=== PATIENT | female | born 2000 ===

== ENCOUNTER 2020-11-09 14:32 | Outpatient (REF) | payer OTHER, SELFPAY ==
[2020-11-09 15:12] LABS: COVID-19 Test Negative (Negative)
== END 2020-11-09 14:33 | disposition home or self-care (01) ==
LOC: HO.LAB 14:32
PROVIDERS: Visit Provider Internal Medicine
DX: Z20.822 Contact with and (suspected) exposure to COVID-19 (principal)
CPT/HCPCS: 36415; 87635; C9803

== ENCOUNTER 2020-11-16 10:28 | Outpatient (REF) | payer OTHER, SELFPAY ==
[2020-11-16 11:00] LABS: COVID-19 Test Negative (Negative)
== END 2020-11-16 10:29 | disposition home or self-care (01) ==
LOC: HO.LAB 10:28
PROVIDERS: Visit Provider Internal Medicine
DX: Z20.822 Contact with and (suspected) exposure to COVID-19 (principal)
CPT/HCPCS: 36415; 87635; C9803

== ENCOUNTER 2020-11-22 21:56 | Emergency (ER) | payer OTHER, SELFPAY ==
[2020-11-22 21:57] VITALS: BP 150/103; PULSE 98; RESP 16; TEMP 36.6; O2SAT 98; BMI 37.1
[2020-11-22] MEDS: Acetaminophen 325 MG TABLET 650 MG PO (22:07)
--- NOTE | 2020-11-22 22:08 | PC.NURSE ---
Pt medicated per request with Tylenol due to a ZAVALA and back pain. Awaiting primary MD thapa.
[2020-11-22 22:44] VITALS: BP 133/85; PULSE 101; RESP 16; O2SAT 99
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
[2020-11-22] MEDS: Ibuprofen 600 MG TABLET PO (23:02)
[2020-11-22] MEDS: Cyclobenzaprine HCl 10 MG TABLET PO (23:02)
== END 2020-11-22 23:08 | disposition home or self-care (01) ==
PROVIDERS: Emergency Provider Emergency Medicine
DX: S16.1XXA Strain of muscle, fascia and tendon at neck level, initial encounter (principal); S39.012A Strain of muscle, fascia and tendon of lower back, initial encounter; M54.2 Cervicalgia; V43.52XA Car driver injured in collision with other type car in traffic accident, initial encounter; Y93.9 Activity, unspecified; Y92.410 Unspecified street and highway as the place of occurrence of the external cause; Y99.9 Unspecified external cause status; Z79.899 Other long term (current) drug therapy
CPT/HCPCS: 99284

== ENCOUNTER 2022-12-14 20:06 | Emergency (ER) | payer OTHER, SELFPAY ==
--- NOTE | ~2022-12-14 | XR_ITS ---
EXAMINATION: XR LUMBOSACRAL SPINE CLINICAL INFORMATION: Pain, injury. COMPARISON: None available. TECHNIQUE: Three views of the lumbosacral spine. FINDINGS: No evidence of acute compression deformity or malalignment. Intervertebral disc heights are maintained. Posterior elements are within normal limits. SI joints are symmetric. No significant paraspinal soft tissue abnormality. XR/XR lumbar spine 2-3V IMPRESSION: No acute fractures or malalignment. If pain persists, consider correlation with an MR of the lumbar spine.
[2022-12-14 20:21] VITALS: BP 119/79; PULSE 92; RESP 18; TEMP 36.8; O2SAT 96; BMI 46.8
--- NOTE | 2022-12-14 20:21 | ED_ITS ---
HPI - General Adult General Chief complaint: Back Pain/Injury Stated complaint: back pain Time Seen by Provider: 12/14/22 22:05 Source: patient, RN notes reviewed and old records reviewed Mode of arrival: ambulatory Limitations: no limitations History of Present Illness HPI narrative: 22-year-old female presents for evaluation of lower back pain. Patient reports that she was ?playing [place] [employer] when she jumped to a hit the [employer]. She states that she landed safely on both feet but ?immediately felt a pop in my lower back. ? Since then she has been having progressively worsening lower back pain that radiates into both legs. She reports some numbness and tingling down into both legs. Denies any bladder or bowel incontinence Her pain is 9/10 and stabbing in nature. Denies any history of back problems Related Data Previous Rx's Medication Instructions Recorded cyclobenzaprine 10 mg tablet 10 mg PO TID PRN muscle spasm #10 11/22/20 tabs ibuprofen 600 mg tablet 600 mg PO Q8H PRN pain #15 tabs 11/22/20 cyclobenzaprine 10 mg tablet 10 mg PO TID PRN muscle spasm #12 12/14/22 tabs dexamethasone 4 mg tablet 4 mg PO BID #4 tabs 12/14/22 tramadol 50 mg tablet 50 mg PO TID PRN severe pain 12/14/22 (scale score 7-10) #12 tabs Allergies Allergy/AdvReac Type Severity Reaction Status Date / Time No Known Allergies Allergy Verified 12/14/22 20:21 [No Known Allergies*] Review of Systems Constitutional: Constitutional: Reports as per HPI, Denies chills, Denies fatigue, Denies fever(s) and Denies headache(s) ENT: Denies headache(s) Cardiovascular: Cardiovascular: Denies chest pain and Denies dyspnea Respiratory: Respiratory: Denies cough and Denies dyspnea Gastrointestinal: Gastrointestinal: Denies abdominal pain, Denies constipation and Denies vomiting Genitourinary: Genitourinary: Denies dysuria Neurologic: Denies headache(s) and Denies focal weakness Endocrine: Endocrine: Denies fatigue [facility] Past Medical History Medical History (Updated 12/14/22 @ 22:54 by Arden Hyde) No known health problems Social History Social History Alcohol intake: never Smoked in Last 30 Days: No Use of substances other than those prescribed or required for medical reasons: No Any prior treatment program specific to substance use: No Advance Directives: No Advance Directives Information Provided: No Patient : No Physical Exam ED Vital Signs: Vital Signs - 24 hr 12/14/22 20:21 12/14/22 21:25 Temperature 98.3 F 98.6 F Pulse Rate 92 89 Respiratory Rate 18 20 Blood Pressure 119/79 140/78 H Pulse Oximetry 96 100 Oxygen Delivery Method Room Air Room Air BMI result Body Mass Index 46.8 Const General: healthy appearing, comfortable, no acute distress, alert and awake Nutritional Appearance: well nourished Orientation/consciousness: patient oriented x3 HENMT Head: Yes normocephalic and Yes atraumatic Eyes Eyelids: Yes eyelids normal Conjunctivae: conjunctivae normal Sclerae: sclerae normal Corneas: corneas normal Pupils: Equal, round and reactive pupils present EOM: EOMs intact bilaterally Neck Neck: Yes full ROM Resp Effort & Inspection: normal respiratory effort, able to speak in complete sentences and not labored Back/Spine/Pelvis Other: No significant tenderness to the lumbar spine. There is minimal sacroiliac regional tenderness without deformity. Straight leg raise negative bilaterally. Skin General skin exam: no rashes or lesions noted and elasticity normal Neuro General: patient oriented x3 Cranial nerves: Yes Equal, round and reactive pupils present and Yes Bilaterally intact EOM present Cognition (Neuro): normal cognition Extrem Other: Moving all extremities well without any obvious deformities Course Course Course Narrative: RME performed by Michaela Castro PA-C. Patient is a 22 year old assigned female at presenting to the emergency department with low back pain. Patient states that she was playing [employer] with her sister when she jumped to hit the birdie, felt a big pop in her low back pain, and is now having pain. Patient states that she took a muscle relaxer and used lidocaine patches but the pain continues. Imaging ordered. Patient placed back in the waiting room pending room availability and results. Reevaluation(s) Reevaluation #1: Patient reports her pain has significantly improved after morphine injection, Decadron. We will discharge the patient on short course of tramadol, two days of Decadron, Flexeril. She will follow-up with her PCP Time: 23:47 Medications Administered Discontinued Medications Generic Name Dose Route Start Last Admin Trade Name Freq PRN Reason Stop Dose Admin Dexamethasone 4 mg 06/03/23 22:14 12/14/22 22:43 Dexamethasone 4 Mg Tablet PO 12/14/22 22:15 4 mg ONCE ONE Administration Morphine Sulfate 4 mg 12/14/22 22:12 12/14/22 22:43 Morphine Sulfate 4 Mg/Ml Cartridge IM 12/14/22 22:13 4 mg ONCE ONE Administration Protocol Ondansetron HCl 4 mg 12/14/22 22:12 12/14/22 22:43 Ondansetron Odt 4 Mg Tab.Rapdis TRANSLINGU 12/14/22 22:13 4 mg ONCE ONE Administration Medical Decision Making Medical Decision Making MDM Narrative: Twenty-four of presents for evaluation of an after jumping and feeling a pop. Most consistent with radiculopathy. Possible herniated disc. Will start with lumbar x-ray. Patient medicated with morphine IM, Decadron 4 mg p.o. denies any red flags for cauda equina syndrome. Differential Diagnosis Disc herniation Lumbar radiculopathy Back pain Sciatica Lab Data Labs: Lab Results 12/14/22 12/14/22 Range/Units 21:07 21:07 Urine Color Yellow Urine Appearance Clear Urine pH >= 9.0 (5.0-9.0) Ur Specific [place] 1.015 (1.005-1.025) Urine Protein Negative (Neg-Trace) mg/dL Urine Glucose (UA) Negative (Negative) mg/dL Urine Ketones Negative (Negative) mg/dL Urine Blood Negative (Negative) Urine Nitrite Negative (Negative) Ur Leukocyte Esterase Negative (Negative) Urine Test NEGATIVE (NEGATIVE) Independent Interpretation I performed an independent interpretation of an: Plain X-Ray (Straightening of the lumbar spine consistent with muscle spasm) Discharge Plan Discharge Clinical Impression: Lumbar radiculopathy Patient Disposition: Home, Self-Care Instructions: Lumbar Radiculopathy (ED) Additional Instructions: Your x-ray showed straightening of the lumbar spine consistent with muscle spasms. No fractures noted Take Decadron twice daily for the next 2 days Use tramadol for severe, breakthrough pain that does not improve with ibuprofen or Tylenol Use cyclobenzaprine for muscle spasms Follow-up with your primary doctor Prescriptions: New dexamethasone 4 mg tablet 4 mg PO BID Qty: 4 0RF tramadol 50 mg tablet 50 mg PO TID PRN (Reason: severe pain (scale score 7-10)) Qty: 12 0RF cyclobenzaprine 10 mg tablet 10 mg PO TID PRN (Reason: muscle spasm) Qty: 12 0RF No Action cyclobenzaprine 10 mg tablet 10 mg PO TID PRN (Reason: muscle spasm) Qty: 10 0RF ibuprofen 600 mg tablet 600 mg PO Q8H PRN (Reason: pain) Qty: 15 0RF
[2022-12-14 21:25] VITALS: BP 140/78; PULSE 89; RESP 20; TEMP 37; O2SAT 100
[2022-12-14 21:54] LABS: Color Urine Yellow; Glucose Urine UA Negative (Negative); Leukocyte Esterase Urine Negative (Negative); Nitrite Urine Negative (Negative); PH >= 9.0 (5.0-9.0); Specific Gravity - Urine 1.015 (1.005-1.025); Urine Blood Negative (Negative); Urine Ketones Negative (Negative); Urine Protein Negative (Neg-Trace)
[2022-12-14 21:57] LABS: Appearance Urine Clear
[2022-12-14 22:17] LABS: UPreg QC Valid YES; Urine Pregnancy NEGATIVE (NEGATIVE)
[2022-12-14] MEDS: dexAMETHasone 4 MG TABLET PO (22:43)
[2022-12-14] MEDS: Ondansetron ODT 4 MG TAB.RAPDIS TRANSLINGU (22:43)
[2022-12-14] MEDS: Morphine Sulfate 4 MG/ML CARTRIDGE IM (22:43)
== END 2022-12-15 00:24 | disposition home or self-care (01) ==
PROVIDERS: Physician Assistant Medical; Emergency Provider Emergency Medicine
DX: M54.16 Radiculopathy, lumbar region (principal)
CPT/HCPCS: 72100; 81003; 81025; 96372; 99284; J2270; J8540

== ENCOUNTER 2025-05-13 15:54 | Outpatient (AMB) | payer OTHER, SELFPAY ==
--- NOTE | 2025-05-13 15:56 | A.OFFPC_ITS ---
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 Required: No Accompanied by: Self / Same As Patient Allergies No Known Allergies (No Known Allergies*) Allergy (Verified 05/13/25 15:57) Tobacco use date assessed: 05/13/25 Dental Screening Dental Screen Date: 05/13/25 Did you have a dental visit in the last 12 months?: Yes Did you have a dental problem in the last 6 months where you did not have access to dental care?: No Was dental information given to patient?: Patient has dentist HPI HPI Comments History of Present Illness Details History of Present Illness The patient is a 25-year-old female presenting to [facility] and for evaluation of multiple concerns including hand pain, headaches, and gynecological issues. Hand Pain: The patient reports a sensation of weakness in her hands and thumbs, accompanied by random, shock-like pains down her thumbs. She notes that the pain sometimes involves other fingers or extends down her hands, and she is unable to apply significant pressure with her thumbs. Headache: The patient has experienced headaches for the past couple of months, which she feels are worsening with each episode. 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 She rates the discomfort as a 7.5 to 8 out of 10 and has tried Tylenol or ibuprofen with uncertain relief, noting that lying down with her eyes closed seems to help. There is no known family history of migraines. Easy Bruisability: The patient reports a tendency to bruise easily and has recently noticed bruises appearing in places where she has no memory of an injury. She notes a family history of easy bruising in her mother and sister and also reports that she sometimes experiences bleeding from her gums when brushing her teeth. Gynecologic History: The patient experienced menarche around age 10 and has regular monthly periods, although their timing within the month can vary. Her flow typically starts light, becomes heavy for two days requiring 3-4 pads per day, and then lightens again before stopping. She reports that her menstrual cramps have become progressively worse with each cycle. Additionally, she experiences significant pain and pressure in her pelvic area, similar to cramps, during intercourse when she is on top; the pain is most intense upon insertion and for the first few movements before subsiding and is not related to lubrication. She has a family history of PCOS in her aunt and grandmother. Fertility Concerns: The patient had an IUD placed in 2020 but had it removed a few months later due to experiencing severe depression. She has not used any form of contraception since the IUD removal and expresses concern that she has not become in the intervening time, although she is not actively trying to conceive. Surgical History: - History of head laceration repair with stitches in childhood Medications: - Tylenol or ibuprofen as needed for hea daches Social History: - Substance Use: Reports occasional use of alcohol and marijuana. - Denies tobacco use or other illicit dr perry. - Occupation: Works at the [employer]. - Marital Status: in 2020. - Family Planning: Currently has no chil dren. - She desires children in the future but is not actively trying to conceive at this time and is not using contraception. Family History: - Reports mother and sister bruilir angel y. - Reports aunt and grandmother have a hi story of Polycystic Ovary Syndrome (PCOS). - Negative for a known family history of migraine headaches. Past Medical History - Depression: Reported history of depres nicanor associated with IUD use in 2020, which resolved upon its removal. - Past Injuries: Hospitalized for a pull ed muscle in her back and a head laceration requiring stitches during childhood. - The patient denies a history of high b lood pressure, diabetes, or seizures. Health Maintenance - The patient is establishing care as a new patient with a primary care Physician - Fertility and Contraception: Discussed history of IUD removal due to depression and current non-use of contraception. - Patient was counseled that fertility c oncerns could be more formally addressed when she is actively trying to conceive. - Laboratory Screening: A comprehensive panel was ordered for baseline health assessment, including a complete blood count, comprehensive metabolic panel, hemoglobin A1c, lipid panel, thyroid studies, Vitamin B12, folate, vitamin D, Hepatitis B/C, HIV, magnesium, urinalysis, and coagulation studies. [facility] Medical History (Updated 12/16/22 @ 00:01 by Marlene Garnica) No known health problems Family History (Updated 05/13/25 @ 15:59 by Kenneth Herring MA) Father No problems noted. Mother No problems noted. Social History Housing: Apartment Alcohol intake: never Patient Tobacco Use Status: Never used Tobacco service: No Current occupational status: employed Cognitive needs: No Hearing needs: No Vision needs: Yes (rx glasses) Questionnaire PHQ-9 Over the last 2 weeks, how often have you been bothered by any of the following problems? 1. Little interest or pleasure in doing things: not at all 2. Feeling down, depressed, or hopeless: not at all 3. Trouble falling or staying asleep, or sleeping too much: not at all 4. Feeling tired or having little energy: several days 5. Poor appetite or overeating: not at all 6. Feeling bad about yourself - or that you are a failure or have let yourself or your family down: not at all 7. Trouble concentrating on things, such as reading the newspaper or watching television: not at all 8. Moving or speaking so slowly that other people could have noticed. Or the opposite - being so fidgety or restless that you have been moving around a lot more than usual: not at all 9. Thoughts that you would be better off or of hurting yourself in some way: not at all Total score: 1 Source: Developed by Drs. Aries Cruz, Joyce Abreu, Eber Guillen and colleagues, with an educational keysha from [employer]. Thrive Questionnaire I am a: Patient What is your living situation today?: I have a steady place to live Within the past 12 months, did the food you bought not last and you didn't have the money to get more?: Never true Within the past 12 months, did you worry whether your food would run out before you got money to buy more?: Never true Do you have trouble paying for medicines?: No Do you have trouble getting transportation to medical appointments?: No Do you have trouble paying your heating and electricity bill?: No Do you have trouble taking care of your child, family member or friend?: No Do you have trouble with day-to-day activities such as bathing, preparing meals, shopping, managing finances, etc.?: No Are you currently unemployed and looking for a job?: No Are you interested in more education?: No Please select the resources that you would like help with: None Currently or been in a relationship where the following occur: No concerns reported THRIVE Score: 0 AUDIT C Alcohol Use Questionnaire (AUDIT-C) 1. How often do you have a drink containing alcohol?: Monthly or less 2. How many drinks containing alcohol do you have on a typical day when you are drinking?: 1 or 2 3. How often do you have six or more drinks on one occasion?: Never Total Score: 1 NICOLA-7 AMB Questionnaire NICOLA-7 Feeling nervous, anxious, or on edge: 1 = Several days Not being able to stop or control worryin = Not at all Worrying too much about different things: 0 = Not at all Trouble relaxin = Several days Being so restless that it is hard to sit still: 0 = Not at all Becoming easily annoyed or irritable: 0 = Not at all Feeling afraid as if something awful might happen: 0 = Not at all Total NICOLA-7 score (0-4 normal; 5-9 mild; 10-14 moderate; 15-21 severe): 2 Source: Developed by Drs. Aries Cruz, Joyce Abreu, Eber Guillen and colleagues, with an educational keysha from [employer]. Review of Systems Narrative Review of Systems - Neurological: Reports headaches characterized by pressure on the sides of the head and behind the eyes, occurring randomly for the past few months and worsening in severity. - HEENT: Reports occasional bleeding from gums when brushing teeth. - Musculoskeletal: Reports weakness in hands and thumbs, with random shocks of pain. - Reports inability to put significant pressure on her thumbs. - Integumentary/Hematologic: Reports bruising easily and finding unexplained bruises. - Gynecological: Reports progressively worsening menstrual cramps. - Reports pain and pressure in the pelvic area during sexual intercourse. - Reports regular monthly periods but is concerned about not having conceived since stopping contraception in 2020. - Psychiatric: Reports a history of depression associated with prior IUD use, which resolved with its removal. 10-point ROS reviewed and negative except as noted in HPI Physical exam (Primary Care) Vital Signs: Last Vital Signs Temp 98.1 F 05/13/25 16:00 Pulse 73 05/13/25 16:00 Resp 16 05/13/25 16:00 BP 123/77 05/13/25 16:00 Pulse Ox 96 05/13/25 16:00 Oxygen Delivery Method Room Air 05/13/25 16:00 BMI result Body Mass Index 46.9 Tobacco/Smoking Status: Tobacco use Status Tobacco use date assessed 05/13/25 05/13/25 15:58 Patient Tobacco Use Status Never used Tobacco 05/13/25 15:58 PHQ-9: PHQ-9 Score PHQ-9: Total score 1 05/13/25 15:58 Currently or been in a relationship where the following occur: No concerns reported Narrative Physical Exam General: Well-appearing, in no acute distress. Vital signs: Within normal limits. HEENT: Normocephalic, atraumatic. PERRLA, EOMI. Conjunctiva clear, sclera anicteric. Oropharynx clear, mucous membranes moist. TMs intact bilaterally. Neck: Supple, no lymphadenopathy, no thyromegaly, no JVD or carotid bruits. Cardiovascular: RRR, normal S1/S2, no murmurs, rubs, or gallops. Peripheral pulses 2+ and symmetric. No edema. Respiratory: Lungs clear to auscultation bilaterally, no wheezes, rales, or rhonchi. Normal effort. Abdomen: Soft, non-tender, non-distended. Normoactive bowel sounds. No hepatosplenomegaly, no masses. MSK: Full range of motion, no joint swelling or deformity. Normal gait. Reports weakness and random shocks of pain in thumbs and hands. Skin: Warm, dry, intact. No rashes, lesions, or pallor. Reports bruising easily without recollection of trauma. Neuro: Alert and oriented x3. Cranial nerves II-XII intact. Strength 5/5 throughout. Sensation intact. Reflexes 2+ symmetric. Normal coordination and gait. Reports pressure-like headaches on the side of the head and behind the eyes, rated 7.5/10 in severity. Psych: Appropriate mood and affect. Normal judgment and insight. Reports history of depression related to IUD use. Coding Level of Care Code New Pt Level 4 (25922) Diagnoses Encounter for general adult medical examination with abnormal findings Z00.01 Headache R51.9 Bilateral hand pain M79.641; M79.642 Weakness of both hands R29.898 Easy bruisability R23.3 Dysmenorrhea N94.6 Dyspareunia in female N94.10 Morbid obesity due to excess calories E66.01 Assessment & Plan Assessment & Plan (1) Encounter for general adult medical examination with abnormal findings: Code(s): Z00.01 - Encounter for general adult medical examination with abnormal findings (2) Headache: Code(s): R51.9 - Headache, unspecified (3) Bilateral hand pain: Code(s): M79.641 - Pain in right hand; M79.642 - Pain in left hand (4) Weakness of both hands: Code(s): R29.898 - Other symptoms and signs involving the musculoskeletal system (5) Easy bruisability: Code(s): R23.3 - Spontaneous ecchymoses (6) Dysmenorrhea: Code(s): N94.6 - Dysmenorrhea, unspecified (7) Dyspareunia in female: Code(s): N94.10 - Unspecified dyspareunia (8) Morbid obesity due to excess calories: Code(s): E66.01 - Morbid (severe) obesity due to excess calories Plan Consent The patient was informed of the plan to obtain comprehensive laboratory studies, including a CBC, CMP, HbA1c, lipid panel, thyroid studies, vitamin levels, infectious disease screening, and coagulation studies, to evaluate her symptoms. The patient verbally agreed to proceed with the blood draw and to a follow-up visit in two weeks to discuss the results. Patient was informed and verbally consented to the use of an ambient scribe for clinic note documentation during this visit. Plan 1. Establishment Of Care - Will proceed with establishing the patient with the practice. - Ordered a comprehensive baseline blood panel including CBC, CMP, HbA1c, lipid panel, TSH, vitamin B12, folate, vitamin D, magnesium, and a urine test to assess overall health. 2. Headache - The patient's new and worsening headaches will be initially evaluated with the ordered lab work to rule out systemic causes. - Advised to continue using Tylenol or ibuprofen for symptomatic relief. - Will re-evaluate at follow-up. 3. Hand Pain - The complaint of hand weakness and pain will be investigated initially through the comprehensive lab panel to screen for metabolic or vitamin deficiencies. - Symptoms and findings will be reassessed at the follow-up visit. 4. Easy Bruisability - Based on the patient's report of easy bruising and occasional gum bleeding, coagulation studies have been added to the lab orders to evaluate for a bleeding diathesis. - CBC results will be reviewed for platelet count. 5. Gynecologic Concerns (Dysmenorrhea, Dyspareunia, Fertility) - Addressed patient's concerns about worsening dysmenorrhea, dyspareunia, and fertility. - Provided reassurance regarding fertility, explaining that a formal workup can be initiated when she is actively trying to conceive. - The ordered TSH and other labs will provide an initial screen for systemic issues contributing to her gynecologic symptoms. - Plan to re-evaluate and consider further gynecologic workup based on lab results and symptom persistence at follow-up. 6. Follow-Up - Patient to follow up in two weeks to review all lab results and discuss further management of her health concerns. Discussion Notes I introduced myself and discussed the patient's primary concerns, which include establishing care, new-onset headaches, hand pain, and gynecological issues. I explained that the best initial step would be to perform a comprehensive laboratory workup to get a baseline of her health and investigate her symptoms. The planned labs include a CBC, CMP, HbA1c, lipid panel, thyroid studies, vitamin levels, and infectious disease screening. When she brought up concerns about easy bruising and gum bleeding, I explained that I would add coagulation studies to the panel to assess her blood's clotting ability. Regarding her worries about fertility after not conceiving since 2020, I provided reassurance that this is not necessarily a cause for alarm, as targeted timing of intercourse has not been attempted, and a formal workup can be initiated when she and her partner are actively trying. I informed the patient that her physical exam was generally unremarkable. We agreed that she would get the bloodwork done and return for a follow-up appointment in two weeks to review all the results and create a more definitive plan to address all of her concerns. Patient Instructions - Please go to a laboratory to have your blood drawn for the tests that were ordered. - You can continue to take Tylenol or ibuprofen as needed for your headaches. - Please schedule a follow-up appointment in two weeks to go over your lab results and discuss the next steps. - If you think of any other questions or concerns, please bring them to our next visit. Medical Decision Making The patient is a 25-year-old female presenting to [facility] primary care, which provides an opportunity for a comprehensive health assessment. She presents with multiple, varied complaints including new headaches, hand pain, and gynecological issues (dysmenorrhea, dyspareunia), along with a late-emerging concern for easy bruising. My initial approach is to perform a broad diagnostic evaluation to gather objective data, as the symptoms are non-specific and span multiple organ systems. A comprehensive chemistry panel, CBC, HbA1c, lipid panel, and TSH are indicated for a baseline evaluation and to screen for common causes of her symptoms, such as anemia, thyroid dysfunction, or metabolic abnormalities. The patient's report of easy bruising and occasional gum bleeding, raised late in the encounter, is a potential red flag that warranted adding coagulation studies to the workup to rule out a bleeding disorder. Her constellation of gynecological symptoms, combined with a family history of PCOS, requires further attention, but initial lab screening is a prudent first step before considering a more extensive gynecological workup. Her fertility concerns were addressed with reassurance, deferring a formal workup until she is actively trying to conceive. The plan is to gather data from these initial tests and then re-evaluate the patient in two weeks to formulate a more targeted diagnostic and treatment plan for each of her presenting problems. Total time spent caring for the patient today was 30 minutes. This includes time spent before the visit reviewing the chart, time spent documenting, and time spent reviewing laboratory results, diagnostic imaging, medications, performing a medically necessary evaluation, counseling on diagnoses, care coordination.. Orders: Orders HIV Ab/Ag Today Z13.9 - Encounter for screening, unspecified TSH reflex Free T4 Today Z13.9 - Encounter for screening, unspecified Vitamin B12 and Folate Today Z13.9 - Encounter for screening, unspecified Vitamin D 1,25 dihydroxy Today Z13.9 - Encounter for screening, unspecified Prothrombin Time INR Today Z13.9 - Encounter for screening, unspecified Partial Thromboplastin Time Today Z13.9 - Encounter for screening, unspecified Von Willebrand Factor Antigen Today Z13.9 - Encounter for screening, unspecified Complete Blood Count Auto Diff Today Z13.9 - Encounter for screening, unspecified Comprehensive Met. Panel Today Z13.9 - Encounter for screening, unspecified Hemoglobin A1c Today Z13.9 - Encounter for screening, unspecified Hepatitis B Surface Antibody Today Z13.9 - Encounter for screening, unspecified Hepatitis B Surface Antigen Today Z13.9 - Encounter for screening, unspecified Hepatitis C Antibody Today Z13.9 - Encounter for screening, unspecified Lipid Panel Today Z13.9 - Encounter for screening, unspecified Magnesium Today Z13.9 - Encounter for screening, unspecified UA CC w/rflx Micro + Cult Today Z13.9 - Encounter for screening, unspecified Medications: Discontinued cyclobenzaprine Discontinued Reason: Patient no longer taking 10 mg PO TID PRN 10 tabs 0RF muscle spasm ibuprofen Discontinued Reason: Patient no longer taking 600 mg PO Q8H PRN 15 tabs 0RF pain cyclobenzaprine Discontinued Reason: Patient no longer taking 10 mg PO TID PRN 12 tabs 0RF muscle spasm dexamethasone Discontinued Reason: Patient no longer taking 4 mg PO BID 4 tabs 0RF tramadol Discontinued Reason: Patient no longer taking 50 mg PO TID PRN 12 tabs 0RF severe pain (scale score 7-10)
--- OUTSIDE RECORDS SUMMARY | 2025-05-13 15:57 | XMS_ITS | Clinical Summary ---
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 Role Phone Unavailable Primary Care Provider Unavailabl e Allergies No known active allergies Medications No known medications Active Problems No known active problems Encounters Date Type Department Care Team Description 04/27/2025 2:50 PM EDT Immunization [facility] [address] [place] [address] Mayra Galvan RN Encounter for immunization 04/27/2025 Travel 04/13/2025 2:00 PM EDT Office Visit [facility] [address] [place] [address] Mono Montes DMD 04/06/2025 Travel from Last 3 Months Immunizations Immunization Administration Dates Next Due Influenza, seasonal, injectable, preservative fr ee 04/27/2025 Social History Tobacco Use Types Packs/Day Years Used Date Smoking Tobacco: Never Smokeless Tobacco: Never Tobacco Cessation:Counseling Given: Not Answered Alcohol Use Standard Drinks/Week Comments Defer 0 (1 standard drink = 0.6 oz pur e alcohol) Comments Unknown Sex and Gender Information Value Date Recorded Sex Assigned at Female 05/13/2022 10:38 AM EDT Legal Sex Female 10:38 AM EDT Gender Identity Female 05/13/2022 10:38 AM EDT Sexual Orientation Straight 05/13/2022 10 :38 AM EDT Plan of Treatment Upcoming Encounters Date Type Department Care Team ([facility] st Contact Info) Description 06/01/2025 8:00 AM EST Office Visit [facility] [address] [place] [address] Mono Montes DMD [address] [place] [address] Health Maintenance Due Date Last Done Comments Dental Oral Exam 1998 Dental Prophylaxis 1998 Dental X-Ray: Bitewings 1998 Depression Screening 1998 HIV Screening 1998 Lipid Panel 1998 SDOH Screening 1998 Disability Screening 1998 Alcohol/Substance Use Screening 2010 Family Planning (PISQ) 2013 HPV Vaccines (1 - 3-dose series) 2013 Hepatitis C Screening 02/11/2016 Hepatitis B Vaccines (1 of 3 - 19+ 3-dose series) 2017 Pap Smear 2019 COVID-19 Vaccine (3 - 2024- season) 2025 02/28/2021, 02/07/2021 Dental X-Ray: Full Mouth 01/22/2026 01/21/2023 Tobacco Screening 04/13/2026 04/13/2025 DTaP/Tdap/Td Vaccines (2 - Td or Tdap) 12/27/2030 12/27/2020 Zoster Vaccines (1 of 2) 02/11/2048 RSV Patients and Patients Aged 60 years or older (1 - 1-dose 75+ series) 2073 Influenza Vaccine Completed 04/27/2025, , 04/04/2022, Additional history exists HIB Vaccines Aged Out No longer eligi ble based on patient's age to complete this topic Hepatitis A Vaccines Aged Out No long er eligible based on patient's age to complete this topic IPV Vaccines Aged Out No longer eligi ble based on patient's age to complete this topic Meningococcal B Vaccine Aged Out No l onger eligible based on patient's age to complete this topic Meningococcal Vaccine Aged Out No tina angel eligible based on patient's age to complete this topic Pneumococcal Vaccine: Pediatrics (0 to 5 Years) and At-Risk Patients (6 to 49) Years Aged Out No longer eligible based on patient's age to complete this topic RSV under 20 months Aged Out No longe r eligible based on patient's age to complete this topic Rotavirus Vaccines Aged Out No longer eligible based on patient's age to complete this topic Procedures Procedure Name Priority Date/Time Associated Diagnosis Comments LIMITED ORAL EVALUATION - PROBLEM FOCUSED Routine 04/13/2025 2:00 PM EDT PANORAMIC RADIOGRAPHIC IMAGE Routine 01/21/2023 11:30 AM EDT from Last 3 Months or Most Recently Relevant to Health Maintenance Insurance [facility] , [address] [place] [address] [facility]
[2025-05-13 16:00] VITALS: BP 123/77; PULSE 73; RESP 16; TEMP 36.7; O2SAT 96; BMI 46.9
== END 2025-05-13 16:31 | disposition home or self-care (01) ==
LOC: HO.HMCFMS 15:55
PROVIDERS: PCP Student in an Organized Health Care Education/Training Program; Visit Provider Student in an Organized Health Care Education/Training Program
DX: Z00.01 Encounter for general adult medical examination with abnormal findings (principal); R51.9 Headache, unspecified; M79.641 Pain in right hand; M79.642 Pain in left hand; R29.898 Other symptoms and signs involving the musculoskeletal system; R23.3 Spontaneous ecchymoses; N94.6 Dysmenorrhea, unspecified; N94.10 Unspecified dyspareunia; E66.01 Morbid (severe) obesity due to excess calories

== ENCOUNTER 2025-05-18 13:06 | Outpatient (REF) | payer OTHER, SELFPAY ==
[2025-05-18 14:15] LABS: MANUAL DIFF FLAG NO
[2025-05-18 14:19] LABS: Hematocrit 37.9 % (37.0-47.0); Hemoglobin 11.9 g/dl (12.0-16.0); INTERNATIONAL NORM RATIO 1.0 (0.9-1.1); Imm Gran Abs Auto 0.05 X10*3/uL (0.00-0.03); Imm Gran Pct Auto 0.5 % (0.0-0.4); Lymphocytes Absolute Auto 4.1 X10*3/uL (1.2-4.9); Mean Corpuscular HGB Conc 31.4 g/dl (31.0-35.0); Mean Corpuscular Hemoglobin 25.8 pg (27.0-33.0); Mean Corpuscular Volume 82.2 fL (80.0-98.0); NRBC Abs Auto 0.000 X10*3/uL (0.0-0.012); NRBC Pct Auto 0.0 /100WBC (0.0-0.2); Platelet Count 487 X10*3/uL (160-400); Prothrombin Time 12.7 SEC (11.2-13.5); Red Blood Count 4.61 X10*6/uL (4.20-5.50); White Blood Count 11.0 X10*3/uL (4.8-10.8)
[2025-05-18 14:22] LABS: Partial Thromboplastin Time 30.7 SEC (26.7-34.1)
[2025-05-18 14:23] LABS: Appearance Urine Clear; Glucose Urine UA Negative (Negative); PH 5.5 (5.0-9.0); Specific Gravity - Urine 1.020 (1.005-1.025); UMIC TRIGGER UACC YES
[2025-05-18 14:54] LABS: Alanine Aminotransferase 25 U/L (0-31); Albumin Level 4.4 g/dL (3.5-5.0); Alkaline Phosphatase 61 U/L (39-117); Anion Gap 12 (12-20); Aspartate Amino Transferase 24 U/L (5-31); Blood Urea Nitrogen 9 mg/dL (9-16); Calcium 9.0 mg/dL (8.4-10.2); Carbon Dioxide 25 mmol/L (22-29); Chloride 105 mmol/L (96-108); Cholesterol 169 mg/dL (<200); Estimated Glomerular Filt Rate > 60; HDL Cholesterol 54 mg/dL (>40); Magnesium 2.0 mg/dL (1.6-2.6); Potassium 3.8 mmol/L (3.3-5.1); Sodium 138 mmol/L (135-145); Total Protein 8.5 g/dL (6.5-8.0); Triglycerides 74 mg/dL (<150)
[2025-05-18 15:19] LABS: Folate 10.3 ng/mL (> or = 4.0); Vitamin B12 432 pg/mL (200-900)
[2025-05-19 08:22] LABS: HBS Num1 0.69 mIU/mL (0-7.99); HBsAGNum1 0.34 S/CO (0.00-0.99); HIV Num 1 0.05 S/CO (0.00-0.99); Hepatitis B Surface Antigen Negative (Negative); ~HepC Num1 0.10 S/CO (0.00-0.79); ~Hepatitis B Surface Antibody NONREACTIVE (Nonreactive); ~Hepatitis C Antibody Nonreactive (Nonreactive)
[2025-05-22 19:33] LABS: VITAMIN D (1,25 OH) D3 66 pg/mL; Vit D (1,25-Dihydroxy) Total 66 pg/mL (18-72); Vitamin D (1,25 OH) D2 <8 pg/mL
== END 2025-05-18 13:07 | disposition home or self-care (01) ==
LOC: HO.CHCLDS 13:06
PROVIDERS: Visit Provider Student in an Organized Health Care Education/Training Program
DX: Z11.4 Encounter for screening for human immunodeficiency virus [HIV] (principal); Z13.89 Encounter for screening for other disorder; Z13.1 Encounter for screening for diabetes mellitus; Z13.6 Encounter for screening for cardiovascular disorders; Z13.29 Encounter for screening for other suspected endocrine disorder; Z51.81 Encounter for therapeutic drug level monitoring
CPT/HCPCS: 36415; 80053; 80061; 81001; 82607; 82652; 82746; 83036; 83735; 84443; 85025; 85610; 85730; 86706; 86803; 87340; 87389

== ENCOUNTER 2025-05-21 09:32 | Outpatient (REF) | payer OTHER, SELFPAY ==
--- OUTSIDE RECORDS SUMMARY | 2025-05-21 09:35 | XMS_ITS | Clinical Summary ---
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 Role Phone Unavailable Primary Care Provider Unavailabl e Allergies No known active allergies Medications No known medications Active Problems No known active problems Encounters Date Type Department Care Team Description 04/27/2025 2:50 PM EDT Immunization [facility] [address] [place] [address] Mayra Galvan RN Encounter for immunization 04/27/2025 Travel 04/13/2025 2:00 PM EDT Office Visit [facility] [address] [place] [address] Mono Montes DMD 04/06/2025 Travel from Last [...] Upcoming Encounters Date Type Department Care Team ([facility] st Contact Info) Description 06/01/2025 8:00 AM EST Office Visit [facility] [address] [place] [address] Mono Montes DMD [address] [place] [address] Health Maintenance Due Date Last Done Comments [...] Most Recently Relevant to Health Maintenance Insurance [facility] , [address] [place] [address] [facility]
[2025-05-21 11:15] LABS: Appearance Urine Clear; Glucose Urine UA Negative (Negative); PH 5.5 (5.0-9.0); Specific Gravity - Urine 1.015 (1.005-1.025); UMIC TRIGGER UACC YES
== END 2025-05-21 09:33 | disposition home or self-care (01) ==
LOC: HO.LAB 09:32
PROVIDERS: PCP Student in an Organized Health Care Education/Training Program; Visit Provider Student in an Organized Health Care Education/Training Program
DX: Z13.89 Encounter for screening for other disorder (principal)
CPT/HCPCS: 36415; 81001; 85246

== ENCOUNTER 2025-05-27 16:42 | Outpatient (AMB) | payer OTHER, SELFPAY ==
--- NOTE | 2025-05-27 16:46 | A.OFFPC_ITS ---
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 Review of laboratory results: The patient reports a history of easy bruising, which prompted coagulation st udies. She denies any symptoms of infection, such as fevers or chills. The patient confirmed she was on her menstrual period during one of the urine sample collections. Social History: - Employment: The patient is employed an d was able to complete most of her lab tests at her workplace. Diagnostic Results: - CBC: White blood cell count was mildly elevated. - Hemoglobin: 11.9 g/dL. - MCV: Normal. - Platelet count: 470,000/mcL. - Coagulation studies: PTT, INR, and von Willebrand factor were all within normal limits. - Comprehensive Metabolic Panel: Sodium, potassium, chloride, and kidney function were normal. - Hemoglobin A1c: Normal. - Liver function tests, calcium, and mag nesium: Normal. - Lipid Panel (non-fasting): Triglycerid es good, total cholesterol good, LDL 101 mg/dL, and HDL 54 mg/dL. - Vitamin B12, Vitamin D, folate: Normal . - Thyroid function tests: Normal. - Urinalysis: A repeat sample showed a l arge amount of blood, which was attributed to menstruation. - Infectious Disease Screening: Negative for Hepatitis B, Hepatitis C, and HIV. Past Medical History - The patient reports a history of easy bruising. Health Maintenance - The patient's lab results were reviewe d, including a CBC, metabolic panel, coagulation factors, liver function, hemoglobin A1c, lipid panel, vitamin levels, and thyroid function. - Screening for Hepatitis B, Hepatitis C , and HIV were completed and found to be negative. - Follow-up is recommended in six months . [facility] Medical History (Updated 12/16/22 @ 00:01 by Marlene Garnica) No known health problems Family History Father No problems noted. Mother No problems noted. Social History (Updated 05/27/25 @ 16:49 by Jayy Wills CMA) Housing: Apartment Alcohol intake: never Patient Tobacco Use Status: Never used Tobacco Substance Use Type: Marijuana service: No Current occupational status: employed Cognitive needs: No Hearing needs: No Vision needs: Yes (rx glasses) Questionnaire Thrive Questionnaire Date Thrive assessed: 05/13/25 I am a: Patient What is your living situation today?: I have a steady place to live Within the past 12 months, did the food you bought not last and you didn't have the money to get more?: Never true Within the past 12 months, did you worry whether your food would run out before you got money to buy more?: Never true Do you have trouble paying for medicines?: No Do you have trouble getting transportation to medical appointments?: No Do you have trouble paying your heating and electricity bill?: No Do you have trouble taking care of your child, family member or friend?: No Do you have trouble with day-to-day activities such as bathing, preparing meals, shopping, managing finances, etc.?: No Are you currently unemployed and looking for a job?: No Are you interested in more education?: No Please select the resources that you would like help with: None Currently or been in a relationship where the following occur: No concerns reported THRIVE Score: 0 Review of Systems Narrative Review of Systems - Constitutional: Denies fevers or chills. - Hematologic: Reports easy bruising. - Genitourinary: Reports being on her menstrual period at the time of a recent urinalysis. 10-point ROS reviewed and negative except as noted in HPI Physical exam (Primary Care) Vital Signs: Last Vital Signs Temp 98 F 05/27/25 16:49 Pulse 83 05/27/25 16:49 Resp 17 05/27/25 16:49 BP 126/58 L 05/27/25 16:49 Pulse Ox 96 05/27/25 16:49 BMI result Body Mass Index 46.4 Tobacco/Smoking Status: Tobacco use Status Tobacco use date assessed 05/13/25 05/27/25 16:47 Patient Tobacco Use Status Never used Tobacco 05/27/25 16:49 Thrive Assessment: Date of Thrive Assessment Date Thrive assessed 05/13/25 05/27/25 16:47 Currently or been in a relationship where the following occur: No concerns reported Narrative Physical Exam General: Well-appearing, in no acute distress. Vital signs: Within normal limits. HEENT: Normocephalic, atraumatic. PERRLA, EOMI. Conjunctiva clear, sclera anicteric. Oropharynx clear, mucous membranes moist. TMs intact bilaterally. Neck: Supple, no lymphadenopathy, no thyromegaly, no JVD or carotid bruits. Cardiovascular: RRR, normal S1/S2, no murmurs, rubs, or gallops. Peripheral pulses 2+ and symmetric. No edema. Respiratory: Lungs clear to auscultation bilaterally, no wheezes, rales, or rhonchi. Normal effort. Abdomen: Soft, non-tender, non-distended. Normoactive bowel sounds. No hepatosplenomegaly, no masses. MSK: Full range of motion, no joint swelling or deformity. Normal gait. Skin: Warm, dry, intact. No rashes, lesions, or pallor. Neuro: Alert and oriented x3. Cranial nerves II-XII intact. Strength 5/5 throughout. Sensation intact. Reflexes 2+ symmetric. Normal coordination and gait. Psych: Appropriate mood and affect. Normal judgment and insight. Coding Level of Care Code Est Pt Level 3 (71974) Diagnoses Hematuria R31.9 Morbid obesity due to excess calories E66.01 Assessment & Plan Assessment & Plan (1) Hematuria: Code(s): R31.9 - Hematuria, unspecified (2) Morbid obesity due to excess calories: Code(s): E66.01 - Morbid (severe) obesity due to excess calories Plan Consent Patient was informed and verbally consented to the use of an ambient scribe for clinic note documentation during this visit. Plan 1. Wellness Check And Review Of Lab Results - The patient's laboratory results were reviewed, and she was reassured that she is a healthy individual. - The mildly elevated white blood cell count is not clinically significant in the absence of infectious symptoms. - Borderline hemoglobin of 11.9 g/dL and elevated platelet count are not concerning in an asymptomatic patient. - Normal coagulation studies, including PTT, INR, and von Willebrand factor, rule out a clotting deficiency as a cause for her easy bruising. - Blood found in the urine is attributed to sample collection during menstruation. - The patient's metabolic panel, lipids, vitamin levels, and thyroid function are all within normal limits. - Infectious disease screening for Hepatitis B, C, and HIV was negative. - The plan is to follow up in six months for a routine check. Discussion Notes I reviewed the patient's lab results with her, noting a mildly elevated white blood cell count, which is not concerning as she has no signs of infection. I also explained that her borderline hemoglobin of 11.9 and elevated platelet count are not clinically significant in her asymptomatic state. I reassured her that the workup for her easy bruising, including all coagulation factors, was normal. I informed her that the blood found in her urine sample was explained by her concurrent menstrual period. We discussed that all other metabolic, cholesterol, vitamin, thyroid, and infectious disease screenings were normal. Overall, I assessed her as a healthy individual and we agreed to a follow-up visit in six months. Patient Instructions - Your lab results have been reviewed and they are reassuring. - Some of your blood counts, like the white blood cells and platelets, were slightly off, but this is not a cause for concern. - The tests for your easy bruising came back normal. - The blood found in your urine sample was because you were on your period at the time. - All your other tests for diabetes, cholesterol, vitamins, thyroid, and infections were normal. - Please schedule a follow-up appointment in six months. Medical Decision Making The patient is a 25-year-old female who presented for a review of her laboratory results. Her labs were notable for a mild leukocytosis, borderline anemia with a hemoglobin of 11.9 g/dL, and thrombocytosis. Clinically, she is asymptomatic, denying any fevers or chills, which makes the leukocytosis less concerning for an active infection. Given a history of easy bruising, coagulation studies including PTT, INR, and von Willebrand factor were checked and found to be normal, ruling out a common clotting deficiency. Urinalysis showed blood, but this is explained by the sample being collected during her menses. All other metabolic markers, lipids, vitamins, and infectious disease screens were reassuringly normal. Based on the comprehensive review and lack of concerning symptoms, the patient is deemed healthy, and the plan is for a routine follow-up in six months. Total Time Statement Total time spent caring for the patient today includes pre-visit chart review, documentation, review of laboratory and diagnostic imaging results, medication reconciliation, medically necessary evaluation, counseling on diagnoses, care coordination, ordering appropriate tests and medications, review of tests performed by other providers, reporting test results to the patient, and communication with other healthcare providers.
[2025-05-27 16:49] VITALS: BP 126/58; PULSE 83; RESP 17; TEMP 36.6; O2SAT 96; BMI 46.4
== END 2025-05-27 17:00 | disposition home or self-care (01) ==
LOC: HO.HMCFMS 16:43
PROVIDERS: PCP Student in an Organized Health Care Education/Training Program; Visit Provider Student in an Organized Health Care Education/Training Program
DX: R31.9 Hematuria, unspecified (principal); E66.01 Morbid (severe) obesity due to excess calories